=== PATIENT | male | born 1990 | race African-American/Black ===

== ENCOUNTER 2024-12-04 19:29 | Emergency (ER) | payer SELFPAY ==
[~2024-12-04] VITALS: Ht 180.3 cm; Wt 56.7 kg
[2024-12-04 20:43] LABS: APPEARANCE,URINE CLEAR (CLEAR); BLOOD, URINE 1+ Ery/uL (NEGATIVE); LEUKOCYTE ESTERASE ,URINE NEGATIVE (NEGATIVE); NITRITE, URINE NEGATIVE (NEGATIVE); UGLUCOSE NEGATIVE (NEGATIVE)
[2024-12-04 20:49] LABS: PLATELET COUNT (AUTO) 273 K/uL (150-450); RED BLOOD CELL COUNT(AUTO) 4.53 MIL/uL (4.5-6.0); RED CELL DISTRIBUTION WIDTH 14.0 % (11.5-15.0); WHITE BLOOD COUNT (AUTO) 6.3 K/uL (4.3-11.0)
[2024-12-04 21:03] LABS: ADD URINE CULTURE NO
[2024-12-04] MEDS ORDERED: ACETAMINOPHEN ES 500 MG TABLET ONE (21:16)
[2024-12-04] MEDS: ACETAMINOPHEN ES 500 MG TABLET PO ONE (21:19)
[2024-12-04] MEDS ORDERED: TAMS-12 PO (21:35)
[2024-12-04] MEDS ORDERED: DOXY100C2 PO (21:36)
[2024-12-04 21:50] LABS: CALCIUM, SERUM 9.2 mg/dL (8.5-10.1); CREATININE 1.1 mg/dL (0.6-1.3); SODIUM SERUM 138.0 mmol/L (136-145); UREA NITROGEN, BLOOD 16.0 mg/dL (7-18)
[2024-12-04] MEDS ORDERED: CEFTRIAXONE 1 G VIAL ONE (22:10)
[2024-12-04] MEDS ORDERED: LIDOCAINE /MPF 1% VIAL 5 ML VIAL ONE (22:11)
[2024-12-04] MEDS: CEFTRIAXONE 1 G VIAL IM ONE (22:27)
[2024-12-04 22:41] VITALS: BP 105/65; TEMP 98.2; O2SAT 99
[2024-12-06 12:06] LABS: CHLAMYDIA TRACHOMATIS NAA Negative (Negative); NEISSERIA GONORRHOEAE NAA Negative (Negative)
== END 2024-12-04 22:42 | disposition home or self-care (01) ==
LOC: ER 19:38
DX: N23 Unspecified renal colic (principal); R31.9 Hematuria, unspecified; F32.A Depression, unspecified; Z87.442 Personal history of urinary calculi
CPT/HCPCS: 99283; 96372; 85025; 80048; 82550; 87086; 81001; 36415; 87491; 87591; J0696; J3490